=== PATIENT | male | born 1940 | race Caucasian/White ===

== ENCOUNTER 2016-11-12 18:34 | Emergency (ER) | payer OTHER ==
[~2016-11-12] VITALS: Ht 182.9 cm; Wt 113.7 kg
[~2016-11-12 18:34] MED LIST: ASPI81TA28 PO; KFL/250 PO
[2016-11-12 18:41] VITALS: TEMP 36.8; Ht 182.9 cm; Wt 113.7 kg
[2016-11-12] MEDS ORDERED: SODIUM CHLORIDE 0.9% 1000ML 500 ML IV STA (18:55)
[2016-11-12] MEDS ORDERED: ACETAMINOPHEN 500 MG TAB PO STA (18:55)
--- NOTE | 2016-11-12 19:01 | EMERGENCY ROOM VISIT NOTE ---
History Report prepared by Kristofer: Jose Eduardo Ledesma Under the Supervision of: Dr. Clarence Benítez M.D. First contact with patient: 18:50 Chief Complaint: BACK PAIN Stated Complaint: PAIN IN SHOULDER History of Present Illness The patient is a 76 year old male who presents to the Emergency Room with complaints of mid shoulder back pain that began 2 weeks ago. The patient rates his pain a 7/10 in severity. The patient has torn ligaments in this area, but he believes that his pain is different than that pain. His pain is worse on the right side. His pain does not radiate down his arm. He was put on Prednisone, but the pain persisted. He notes that he was throwing lumber around recently, which may have contributed to the pain. His pain worsens with movement. He denies any shortness of breath, nausea, diaphoresis, cough, or cold symptoms. Source of History: patient Onset: 2 weeks ago Position: back Symptom Intensity: 7/10 Quality: ache Timing: other (persistent) Modifying Factors (Worsening): movement Associated Symptoms: No SOB, No cough, No diaphoresis, No nausea, No sorethroat Review of Systems See HPI for pertinent positives & negatives. A total of 10 systems reviewed and were otherwise negative. Past Medical & Surgical Medical Problems: (1) Atrial fibrillation Family History Diabetes mellitus Social History Smoking Status: Never Smoker Alcohol Use: none Drug Use: none Marital Status: Housing Status: lives with family Occupation Status: employed Current/Historical Medications Scheduled Aspirin (Aspirin Ec), 81 MG PO DAILY Cephalexin Monohydrate (Keflex), 250 MG PO DAILY Allergies Coded Allergies: Iodine (Verified Allergy, Mild, ITCHING AFTER TOPICAL IODINE IN ED, 11/12/16 ) Penicillins (Verified Allergy, Unknown, _, 11/12/16) Physical Exam Vital Signs Date Time Temp Pulse Resp B/P Pulse Ox O2 Delivery O2 Flow Rate FiO2 11/12/16 21:42 67 24 143/81 94 11/12/16 20:52 66 24 156/76 94 Room Air 11/12/16 19:41 63 11/12/16 19:33 95 Room Air 11/12/16 18:41 36.8 70 20 147/81 93 Room Air Physical Exam GENERAL: Patient is in no acute distress. HEENT: No acute trauma, normocephalic atraumatic, mucous membranes moist, no nasal congestion, no scleral icterus. NECK: No stridor, no adenopathy, no meningismus, trachea is midline. LUNGS: Clear to auscultation bilaterally, no wheeze, no rhonchi, breath sounds equal. HEART: Without murmurs gallops or rubs, regular rate and rhythm. ABDOMEN: Soft, nontender, bowel sounds positive, no hernias, no peritonitis. BACK: No midline tenderness. No lumbar contusion. No thoracic contusion. Somewhat tender in the right scapular region. EXTREMITIES: No cyanosis or edema, full range of motion of all the joints without pain or difficulty, no signs for acute trauma. NEUROLOGIC: Oriented x 3, no acute motor or sensory deficits, no focal weakness. SKIN: No rash, no jaundice, no diaphoresis. Medical Decision & Procedures ER Provider Diagnostic Interpretation: Radiology results are stated below per my review and radiologist interpretation: THORACIC SPINE 3 VIEWS CLINICAL HISTORY: Midthoracic back pain. No reported history of trauma. FINDINGS: AP, lateral, and swimmer's views of the thoracic spine are obtained. No prior studies are available for comparison at the time of dictation. The skeletal structures are osteopenic. There is no radiographic evidence of fracture or malalignment. Vertebral body height and alignment are maintained throughout the thoracic spine. Anterior osteophytes are noted throughout. The transverse processes and pedicles are grossly intact on the frontal view. The Intervertebral disc spaces appear preserved. The imaged posterior ribs appear intact. The lung parenchyma is clear as visualized. IMPRESSION: Osteopenia and degenerative change as above. No acute bony abnormality is identified in the thoracic spine. Electronically signed by: Clarence Gillespie M.D. 11/12/2016 8:40 PM Dictated Date/Time: 11/12/2016 8:39 PM SINGLE VIEW CHEST CLINICAL HISTORY: Midthoracic back pain. FINDINGS: An AP upright chest radiograph is compared to study dated 06/01/2015. The examination is degraded by patient rotation. The heart is enlarged and there is atherosclerotic calcification of the thoracic aorta. The pulmonary vasculature is noncongested. Chronic interstitial thickening is similar to previous. No airspace consolidation, large pleural effusion, or pneumothorax is seen. Linear atelectasis at the left lung base. The skeletal structures are osteopenic. Degenerative change is noted throughout the thoracic spine. IMPRESSION: Cardiomegaly with no acute cardiopulmonary abnormality. Electronically signed by: Clarence Gillespie M.D. 11/12/2016 8:43 PM Dictated Date/Time: 11/12/2016 8:41 PM Laboratory Results 11/12/16 19:30 Red Blood Count 4.53, Mean Corpuscular Volume 90.3, Mean Corpuscular Hemoglobin 31.3, Mean Corpuscular Hemoglobin Concent 34.7, Mean Platelet Volume 9.8, Neutrophils (%) (Auto) 68.7, Lymphocytes (%) (Auto) 21.4, Monocytes (%) (Auto) 7.7, Eosinophils (%) (Auto) 1.6, Basophils (%) (Auto) 0.4, Neutrophils # (Auto) 6.25, Lymphocytes # (Auto) 1.95, Monocytes # (Auto) 0.70, Eosinophils # (Auto) 0.15, Basophils # (Auto) 0.04 11/12/16 19:30 Test 11/12/16 19:30 11/12/16 20:10 White Blood Count 9.11 K/uL (4.8-10.8) Red Blood Count 4.53 M/uL (4.7-6.1) Hemoglobin 14.2 g/dL (14.0-18.0) Hematocrit 40.9 % (42-52) Mean Corpuscular Volume 90.3 fL (80-100) Mean Corpuscular Hemoglobin 31.3 pg (25-34) Mean Corpuscular Hemoglobin Concent 34.7 g/dl (32-36) Platelet Count 199 K/uL (130-400) Mean Platelet Volume 9.8 fL (7.4-10.4) Neutrophils (%) (Auto) 68.7 % Lymphocytes (%) (Auto) 21.4 % Monocytes (%) (Auto) 7.7 % Eosinophils (%) (Auto) 1.6 % Basophils (%) (Auto) 0.4 % Neutrophils # (Auto) 6.25 K/uL (1.4-6.5) Lymphocytes # (Auto) 1.95 K/uL (1.2-3.4) Monocytes # (Auto) 0.70 K/uL (0.11-0.59) Eosinophils # (Auto) 0.15 K/uL (0-0.5) Basophils # (Auto) 0.04 K/uL (0-0.2) RDW Standard Deviation 41.2 fL (36.4-46.3) RDW Coefficient of Variation 12.6 % (11.5-14.5) Immature Granulocyte % (Auto) 0.2 % Immature Granulocyte # (Auto) 0.02 K/uL (0.00-0.02) Anion Gap 9.0 mmol/L (3-11) Est Creatinine Clear Calc Drug Dose 107.9 ml/min Estimated GFR () 102.9 Estimated GFR (Non- 88.8 BUN/Creatinine Ratio 27.7 (10-20) Calcium Level 8.5 mg/dl (8.5-10.1) Total Bilirubin 0.4 mg/dl (0.2-1) Aspartate Amino Transf (AST/SGOT) 22 U/L (15-37) Alanine Aminotransferase (ALT/SGPT) 28 U/L (12-78) Alkaline Phosphatase 71 U/L (45-117) Troponin I < 0.015 ng/ml (0-0.045) Total Protein 7.0 gm/dl (6.4-8.2) Albumin 3.3 gm/dl (3.4-5.0) Globulin 3.7 gm/dl (2.5-4.0) Albumin/Globulin Ratio 0.9 (0.9-2) Lipase 284 U/L (73-393) Chemistry Specimen Hemolysis D-Dimer 280 ug/L FEU (0-500) Laboratory results reviewed by me. Medications Administered Medications (Trade) Dose Ordered Sig/Torrie Route Start Time Stop Time Status Last Admin Dose Admin Sodium Chloride (Nss 1000ml) 500 ml @ 999 mls/hr Q31M STAT IV 11/12/16 18:55 11/12/16 19:25 DC 11/12/16 18:55 999 MLS/HR Acetaminophen (Tylenol Tab) 1,000 mg NOW STAT PO 11/12/16 18:55 11/12/16 18:58 DC 11/12/16 19:31 1,000 MG ECG Indication: back/shoulder pain Rate (beats per minute): 66 Rhythm: normal sinus Findings: no acute ischemic change, no ectopy ED Course 1849: The patient was evaluated in room B9. A complete history and physical exam was performed. 1854: Tylenol Tab 1000 mg PO, Sodium Chloride 500 ml @ 999 mls/hr IV 2132: Reevaluated the patient. Discussed results and discharge instructions: He verbalized understanding and agreement. The patient is ready for discharge. Medical Decision Differential diagnosis includes but is not limited to: musculoskeletal pain, pulmonary embolism, pneumonia, cardiac ischemia, malignancy, fracture, nerve impingement, and muscle spasm. There is no leukocytosis or concerning anemia. No significant electrolyte abnormality, kidney failure, hepatitis. EKG shows a sinus rhythm, no acute ischemia. Cardiac enzyme testing 1 is not consistent with acute cardiac injury. Chest x-ray does not show pneumonia or mediastinal widening. There is no CHF. Thoracic spine series does not show any compression fracture, there was some arthritis seen. D-dimer testing is normal. With a normal d-dimer and my low suspicion for PE, I will stop the workup for this diagnosis. No evidence for pancreatitis. The patient presents with some right scapular discomfort. The pain does seem to worsen with movement. His workup here is benign. His pain does seem reproducible by palpation. I suspect the pain is musculoskeletal. The patient was given some oral Tylenol during his stay. He is being discharged with over- the-counter pain medications, massage, heat and rest. He can follow with his doctor as an outpatient. Impression Primary Impression: Right-sided thoracic back pain Scribe Attestation The scribe's documentation has been prepared under my direction and personally reviewed by me in its entirety. I confirm that the note above accurately reflects all work, treatment, procedures, and medical decision making performed by me. Departure Information Dispostion Home / Self-Care Referrals Rg Carreon M.D. (PCP) Forms HOME CARE DOCUMENTATION FORM, IMPORTANT VISIT INFORMATION Patient Instructions My [facility] Additional Instructions motrin or tylenol for pain massage and stretching can help rest avoid activity that aggrevates the area all your testing today was ok as we discussed
[2016-11-12 19:33] VITALS: O2SAT 95
[2016-11-12 19:45] LABS: BASO % 0.4 %; BASO ABS # 0.04 K/uL (0-0.2); COMPLETE YES; EOS % 1.6 %; HEMATOCRIT 40.9 % (42-52); IG% 0.2 %; LYMPH % 21.4 %; LYMPH ABS # 1.95 K/uL (1.2-3.4); MEAN CELL VOLUME 90.3 fL (80-100); MEAN CORPUSCULAR HEMOGLOBIN 31.3 pg (25-34); MEAN CORPUSCULAR HGB CONC 34.7 g/dl (32-36); MEAN PLATELET VOLUME 9.8 fL (7.4-10.4); MONO % 7.7 %; NEUT % 68.7 %; PLATELET COUNT 199 K/uL (130-400); RED BLOOD COUNT 4.53 M/uL (4.7-6.1); WHITE BLOOD COUNT 9.11 K/uL (4.8-10.8)
[2016-11-12 20:08] LABS: ALB/GLOB RATIO 0.9 (0.9-2); ALKALINE PHOSPHATASE 71 U/L (45-117); ALT/SGPT 28 U/L (12-78); AST/SGOT 22 U/L (15-37); BLOOD UREA NITROGEN 21 mg/dl (7-18); BUN/CREATININE RATIO 27.7 (10-20); CALCIUM 8.5 mg/dl (8.5-10.1); CARBON DIOXIDE 27 mmol/L (21-32); CHLORIDE 104 mmol/L (98-107); CREATININE 0.77 mg/dl (0.60-1.40); GLUCOSE 177 mg/dl (70-99); POTASSIUM 4.3 mmol/L (3.5-5.1); SODIUM 140 mmol/L (136-145)
--- NOTE | 2016-11-12 20:41 | DIAGNOSTIC IMAGING REPORT ---
THORACIC SPINE 3 VIEWS CLINICAL HISTORY: Midthoracic back pain. No reported history of trauma. FINDINGS: AP, lateral, and swimmer's views of the thoracic spine are obtained. No prior studies are available for comparison at the time of dictation. The skeletal structures are osteopenic. There is no radiographic evidence of fracture or malalignment. Vertebral body height and alignment are maintained throughout the thoracic spine. Anterior osteophytes are noted throughout. The transverse processes and pedicles are grossly intact on the frontal view. The Intervertebral disc spaces appear preserved. The imaged posterior ribs appear intact. The lung parenchyma is clear as visualized. IMPRESSION: Osteopenia and degenerative change as above. No acute bony abnormality is identified in the thoracic spine. Electronically signed by: Clarence Gillespie M.D. 11/12/2016 8:40 PM Dictated Date/Time: 11/12/2016 8:39 PM
--- NOTE | 2016-11-12 20:44 | DIAGNOSTIC IMAGING REPORT ---
SINGLE VIEW CHEST CLINICAL HISTORY: Midthoracic back pain. FINDINGS: An AP upright chest radiograph is compared to study dated 06/01/2015. The examination is degraded by patient rotation. The heart is enlarged and there is atherosclerotic calcification of the thoracic aorta. The pulmonary vasculature is noncongested. Chronic interstitial thickening is similar to previous. No airspace consolidation, large pleural effusion, or pneumothorax is seen. Linear atelectasis at the left lung base. The skeletal structures are osteopenic. Degenerative change is noted throughout the thoracic spine. IMPRESSION: Cardiomegaly with no acute cardiopulmonary abnormality. Electronically signed by: Clarence Gillespie M.D. 11/12/2016 8:43 PM Dictated Date/Time: 11/12/2016 8:41 PM
[2016-11-12 21:42] VITALS: BP 143/81; PULSE 67; O2SAT 94
== END 2016-11-12 21:45 | disposition home or self-care (01) ==
LOC: C.EDB 18:35
DX: M54.6 Pain in thoracic spine (principal); I48.91 Unspecified atrial fibrillation; Z79.82 Long term (current) use of aspirin

== ENCOUNTER 2016-12-30 18:07 | Emergency (ER) | payer OTHER ==
[~2016-12-30] VITALS: Ht 182.9 cm; Wt 138.0 kg
[2016-12-30] MEDS ORDERED: FENTANYL CITRATE INJ 50 MCG/1 ML 2 ML VIAL IV ONE (18:16)
[2016-12-30] MEDS ORDERED: MIDAZOLAM HCL 5 MG/ML 1 ML VIAL IV ONE (18:16)
[2016-12-30 18:17] VITALS: O2SAT 98
[2016-12-30 18:18] VITALS: Ht 182.9 cm; Wt 138.0 kg
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
[2016-12-30] MEDS ORDERED: DiphenhydrAMINE HCL 50 MG/ML VIAL IV STA (18:42)
[2016-12-30] MEDS ORDERED: METHYLPREDNISOLONE 125 MG VIAL IV STA (18:42)
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
[2016-12-30] MEDS ORDERED: OPTIRAY 320 IV PRN (18:45)
[2016-12-30] MEDS ORDERED: METHYLPREDNISOLONE 125 MG VIAL ONE (18:46)
[2016-12-30] MEDS ORDERED: DiphenhydrAMINE HCL 50 MG/ML VIAL ONE (18:46)
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
[2016-12-30] MEDS ORDERED: RAPID SEQUENCE INDUCTION BAG ONE (18:55)
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
[2016-12-30 19:16] VITALS: BP 184/109; PULSE 135; O2SAT 100
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
[2016-12-30 19:43] LABS: ISTAT CREATININE 0.7 mg/dl (0.6-1.3); ISTAT IONIZED CALCIUM 1.1 mmol/l (1.12-1.32)
== END 2016-12-30 19:10 | disposition short-term general hospital (02) ==
LOC: EDBD 18:07 → C.ED 18:15
DX: S06.6X9A Traumatic subarachnoid hemorrhage with loss of consciousness of unspecified duration, initial encounter (principal); S06.5X9A Traumatic subdural hemorrhage with loss of consciousness of unspecified duration, initial encounter; S12.101A Unspecified nondisplaced fracture of second cervical vertebra, initial encounter for closed fracture; S22.42XA Multiple fractures of ribs, left side, initial encounter for closed fracture; S27.321A Contusion of lung, unilateral, initial encounter; S37.012A Minor contusion of left kidney, initial encounter; R31.9 Hematuria, unspecified; S27.1XXA Traumatic hemothorax, initial encounter; V80.928A Occupant of animal-drawn vehicle injured in other transport accident, initial encounter; I48.91 Unspecified atrial fibrillation; I10 Essential (primary) hypertension; Z79.82 Long term (current) use of aspirin; Z83.3 Family history of diabetes mellitus

== ENCOUNTER 2017-02-17 21:49 | Emergency (ER) | payer SELFPAY ==
[~2017-02-17] VITALS: Ht 182.9 cm; Wt 90.9 kg
[2017-02-17 22:06] VITALS: TEMP 36.5; Ht 182.9 cm; Wt 90.9 kg
[2017-02-17] MEDS ORDERED: IBUP-1050 PO (22:38)
[2017-02-17] MEDS ORDERED: SITA1TAB27 PO (22:38)
[2017-02-17] MEDS ORDERED: DFL100 PO (22:38)
[2017-02-17] MEDS ORDERED: CIPR-255 PO (22:38)
[2017-02-17] MEDS ORDERED: OXYC1CAP5 PO (22:38)
[2017-02-17] MEDS ORDERED: INSDGIPEN SQ (22:38)
[2017-02-17] MEDS ORDERED: LVNIS40 SQ (22:38)
[2017-02-17] MEDS ORDERED: MISCCAP80 PO (22:38)
[2017-02-17] MEDS ORDERED: LEVE500T PO (22:38)
[2017-02-17] MEDS ORDERED: ACET-1311 PO (22:38)
[2017-02-17 23:14] LABS: BASO % 0.3 %; BASO ABS # 0.03 K/uL (0-0.2); COMPLETE YES; EOS % 1.1 %; HEMATOCRIT 31.4 % (42-52); IG% 0.2 %; LYMPH % 20.4 %; LYMPH ABS # 1.87 K/uL (1.2-3.4); MEAN CELL VOLUME 84.4 fL (80-100); MEAN CORPUSCULAR HEMOGLOBIN 27.4 pg (25-34); MEAN CORPUSCULAR HGB CONC 32.5 g/dl (32-36); MEAN PLATELET VOLUME 8.2 fL (7.4-10.4); MONO % 9.9 %; NEUT % 68.1 %; PLATELET COUNT 345 K/uL (130-400); RED BLOOD COUNT 3.72 M/uL (4.7-6.1); WHITE BLOOD COUNT 9.15 K/uL (4.8-10.8)
[2017-02-17 23:22] LABS: URINE APPEARANCE CLEAR (CLEAR); URINE BILIRUBIN NEG (NEG); URINE COLOR YELLOW; URINE EPITHELIAL CELL AUTO >30 /lpf (0-5); URINE NITRITE NEG (NEG); URINE PH 6.5 (4.5-7.5); URINE SPECIFIC GRAVITY 1.011 (1.000-1.030); UROBILINOGEN NEG (NEG); ZZURINE CULT IF INDIC CATH YES
[2017-02-17 23:24] LABS: MANUAL MICROSCOPIC REQUIRED? NO; REVIEW REQ? YES
[2017-02-17 23:33] LABS: BUN/CREATININE RATIO 14.7 (10-20); CALCIUM 8.5 mg/dl (8.5-10.1); CREATININE 0.62 mg/dl (0.60-1.40); POTASSIUM 3.6 mmol/L (3.5-5.1)
[2017-02-17] MEDS ORDERED: OPTIRAY 320 IV PRN (23:45)
[2017-02-18] MEDS ORDERED: SODIUM CHLORIDE 0.9% 500ML 500 ML IV STA (01:14)
[2017-02-18 01:19] VITALS: BP 130/64; PULSE 55; O2SAT 94
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
--- NOTE | 2017-02-18 06:45 | DIAGNOSTIC IMAGING REPORT ---
LEFT KNEE 3 VIEWS CLINICAL HISTORY: Left knee pain. COMPARISON: None FINDINGS: Alignment of the left knee is anatomic. There is no acute fracture. There is a small left knee joint effusion. There is mild narrowing of the medial and patellofemoral compartments. Osteophytosis present. IMPRESSION: 1. No acute fracture. 2. Small left knee joint effusion. 3. Mild to moderate osteoarthritis within the medial and patellofemoral compartments of the left knee. Electronically signed by: Ko Carter M.D. 02/18/2017 6:43 AM Dictated Date/Time: 02/18/2017 6:42 AM
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
== END 2017-02-18 01:40 | disposition home or self-care (01) ==
LOC: C.EDB 21:52
DX: R10.30 Lower abdominal pain, unspecified (principal); N39.0 Urinary tract infection, site not specified; R31.9 Hematuria, unspecified; B49 Unspecified mycosis; M25.562 Pain in left knee; I48.91 Unspecified atrial fibrillation; Z87.820 Personal history of traumatic brain injury; Z98.890 Other specified postprocedural states; Z83.3 Family history of diabetes mellitus; Z79.01 Long term (current) use of anticoagulants; Z79.82 Long term (current) use of aspirin

== ENCOUNTER 2019-04-06 01:47 | Inpatient (IN) ==
--- OUTSIDE RECORDS SUMMARY | 2019-04-06 01:51 | External Medical Summary | Continuity of Care Document ---
:1940 Author Name Manolo M.DСветлана Address Unavailable Unavailable , Care Team Providers Name Role Phone Unavailable Unavailable Unavailable PECHT, R Unavailable Unavailable Unavailable Unavailable Unavailable Problems Incomplete emptying of bladder (788.21) (R33.9) Urinary casts (791.7) (R82.998) Benign prostatic hypertrophy with urinary obstruction (600.0 1) (N40.1) Urinary tract infection (599.0) (N39.0) Retention of urine (788.20) (R33.9) Elevated prostate specific antigen (PSA) (790.93) (R97.20) Encounter for screening for malignant neoplasm of prostate ( V76.44) (Z12.5) Allergies and Adverse Reactions Penicillins (Allergy) Medications Keflex 250 MG Oral Capsule , M.D. Refills: 0 Aspirin 81 MG TABS , M.D. Refills: 0 Procedures History of Back Surgery Status: Complete d History of Transurethral Resection Of Prostate Status: Completed Immunizations Immunizations not documented Social History - Smoking Status Former smoker Plan of Treatment Planned Observations Planned Goals not documented Results No Known Results Results not documented
[2019-04-06] MEDS ORDERED: SODIUM CHLORIDE 0.9% 500 ML IV SCH (02:15)
[2019-04-06] MEDS ORDERED: cefTRIAXone SODIUM 2,000 MG/70 ML BAG IV STA (02:16)
[2019-04-06 02:23] LABS: Basophils # (auto) 0.02 K/uL (0-0.2); Basophils % (auto) 0.1 %; Eosinophils # (auto) 0.03 K/uL (0-0.5); Eosinophils % (auto) 0.2 %; Hemoglobin 13.4 g/dL (14.0-18.0); Immature Granulocytes # (auto) 0.03 K/uL (0.00-0.02); Immature Granulocytes % (auto) 0.2 %; Lymphocytes # (auto) 0.32 K/uL (1.2-3.4); Lymphocytes % (auto) 2.3 %; Mean Corpuscular Hgb Conc 34.4 g/dL (32-36); Mean Corpuscular Volume 89.9 fL (80-100); Mean Platelet Volume 9.4 fL (7.4-10.4); Monocytes # (auto) 0.41 K/uL (0.11-0.59); Monocytes % (auto) 2.9 %; Neutrophils # (auto) 13.39 K/uL (1.4-6.5); Neutrophils % (auto) 94.3 %; Platelet Count 164 K/uL (130-400); RDW Coefficient of Variation 12.6 % (11.5-14.5); RDW Standard Deviation 41.5 fL (36.4-46.3); Red Blood Count 4.34 M/uL (4.7-6.1)
--- NOTE | 2019-04-06 02:38 | Emergency Department Note ---
Entered by Nain Bridges acting as a scribe for History of Present Illness General Chief complaint: Fever Stated complaint: FEVER/ABDOMIANL PAIN Source: family () Limitations: altered mental status History of Present Illness Onset (ago): day(s) (yesterday at noon) Location: head Pain Consistency: + constant Quality: + other (confusion) Associated symptoms: + other (Negative for cough.) The patient is a 79 year old male who presents to the emergency department with complaints of constant confusion beginning yesterday at noon. Per , the patient became confused yesterday at noon and then had a flare up around midnight. She states that the patient does not have a cough. She notes that the patient has a history of urinary and bladder infections. HPI limited secondary to AMS and minimal communication from . Home Medications Home Medications Medication Instructions Recorded Confirmed Type aspirin 81 mg PO DAILY 04/06/19 04/06/19 History cephalexin 250 mg PO DAILY 04/06/19 04/06/19 History citalopram 20 mg PO DAILY 04/06/19 04/06/19 History metformin 500 mg PO BIDM 04/06/19 04/06/19 History Allergies Allergy/AdvReac Type Severity Reaction Status Date / Time iodine Allergy Mild ITCHING Verified 04/06/19 03:30 AFTER TOPICAL IODINE IN ED Penicillins Allergy Unknown _ Verified 04/06/19 03:30 Past Med/Surg History Medical History Neck pain, musculoskeletal (Acute) Atrial fibrillation (Chronic) Abdominal pain (Acute) Back pain (Acute) C2 cervical fracture (Acute) Calcific tendinitis (Acute) Fungal infection (Acute) Headache (Acute) Hematuria (Acute) Hemothorax (Acute) Multiple rib fractures (Acute) Pulmonary contusion (Acute) Renal hematoma, left (Acute) SAH (subarachnoid hemorrhage) (Acute) SDH (subdural hematoma) (Acute) Shoulder pain (Acute) UTI (urinary tract infection) (Acute) Bladder infection Family History Other No significant family history Social History Preferred Language: Ethiopian Communication Ability: Effective Beliefs That Will Affect Care: None marital status: Current Living Situation: Spouse Feels Safe at Home: Yes Smoking Status: Never smoker Second Hand Exposure: No Hx Alcohol Use: No Hx Substance Use: No Review of Systems ROS limited secondary to AMS. Physical Exam Vital Signs Vital Signs - 24 hr 04/06/19 01:51 04/06/19 03:19 04/06/19 03:45 Temperature 39.5 C H Temperature Source Oral Sepsis Recent Fever Within 48 Hours Yes Sepsis New/Unexplained Change in Mental Status Yes Sepsis Action Taken by Nursing Physician Notified Pulse Rate 72 Pulse Rate [Right] 71 69 Respiratory Rate 27 H 22 28 H Respiratory Effort / Characteristics Non-Labored Spontaneous Respiratory Depth Shallow Respiratory Pattern Regular Blood Pressure 125/77 Blood Pressure [Right Arm] 138/68 Blood Pressure Mean 93 Blood Pressure Mean [Right Arm] 91 Blood Pressure Position [Right Arm] Pulse Oximetry 88 L 93 93 Oxygen Delivery Method Room Air Nasal Cannula Oxygen Flow Rate 2 04/06/19 04:24 04/06/19 05:13 Temperature 37.5 C Temperature Source Oral Sepsis Recent Fever Within 48 Hours Sepsis New/Unexplained Change in Mental Status Sepsis Action Taken by Nursing Pulse Rate Pulse Rate [Right] 67 61 Respiratory Rate 26 H 26 H Respiratory Effort / Characteristics Non-Labored Spontaneous Respiratory Depth Shallow Respiratory Pattern Regular Blood Pressure Blood Pressure [Right Arm] 126/59 L 108/59 L Blood Pressure Mean Blood Pressure Mean [Right Arm] 81 75 Blood Pressure Position [Right Arm] Semi-fowlers Semi-fowlers Pulse Oximetry 95 92 Oxygen Delivery Method Nasal Cannula Nasal Cannula Oxygen Flow Rate 2 2 Vital signs reviewed. Noted to be febrile. General: Elderly and chronically ill appearing male, in no significant distress. HEENT: No scleral icterus, PERRLA, neck supple. Atraumatic. Mucous membranes are dry. Cardiovascular: Regular rate and rhythm, no extra sounds. Pulmonary: Clear to auscultation bilaterally but unable to cooperate with exam. Abdomen: Soft, nontender, nondistended, positive bowel sounds. Obese abdomen. Musculoskeletal: Atraumatic, no peripheral edema. Neurologic: Awake, alert, unable to answer questions regarding place, age/ date, and current events. Skin: Warm, dry, no rash Course 0206: The patient was evaluated in room B7. A complete history and physical exam was performed. 0439: Upon reevaluation, the patient is stable. I discussed the findings and the treatment plan with the patient. He expresses agreement and understanding. I spoke with Dr. Moon of the [facility] Hospitalist Service. The patient will be evaluated for further management. Consultations Consultation #1: I reviewed the patient's case with Dr. Moon - Hospitalist, [facility]. He will evaluate the patient for further management. Time: 04:39 Administered Medications Acetaminophen (Tylenol) 650 mg PO Q4H PRN PRN Reason: Fever Stop: 05/06/19 20:23 Last Admin: 04/06/19 20:30 Dose: 650 mg Documented by: [id number] Insulin Aspart (Novolog Flexpen) 0 units SC ACHS SHARRON Stop: 05/06/19 07:29 Last Admin: 04/06/19 21:39 Dose: 1 units Documented by: [id number] Cosigned by: [id number] Admin: 04/06/19 18:09 Dose: 4 units Documented by: [id number] Cosigned by: [id number] Admin: 04/06/19 12:53 Dose: 3 units Documented by: [id number] Cosigned by: [id number] Admin: 04/06/19 10:01 Dose: 1 units Documented by: [id number] Cosigned by: [id number] Discontinued Medications Sodium Chloride (Nss) 500 mls @ 200 mls/hr IV .[id number] SHARRON Stop: 04/06/19 04:44 Last Infusion: 04/06/19 05:14 Dose: 0 mls/hr Documented by: [id number] Admin: 04/06/19 02:41 Dose: 200 mls/hr Documented by: [id number] Ceftriaxone Sodium (Rocephin) 2,000 mg in 70 mls @ 140 mls/hr IV NOW STA Stop: 04/06/19 02:45 Last Infusion: 04/06/19 03:18 Dose: 0 mls/hr Documented by: [id number] Admin: 04/06/19 02:41 Dose: 140 mls/hr Documented by: [id number] Acetaminophen (Ofirmev) 1,000 mg in 100 mls @ 400 mls/hr IV NOW STA Stop: 04/06/19 03:47 Last Infusion: 04/06/19 03:59 Dose: 0 mls/hr Documented by: [id number] Admin: 04/06/19 03:44 Dose: 400 mls/hr Documented by: [id number] Medical Decision Making Differential Diagnosis Differential diagnosis: Etiologies such as viral syndrome, otitis, pharyngitis, pneumonia, influenza, meningitis, urinary tract infection, septic arthritis, soft tissue infectious process, intra-abdominal process, sepsis, bacteremia, as well as others were entertained. Medical Records Attestation: I reviewed the patient's medical records. Home Medications Current Medication List: was personally reviewed by me Laboratory Data Attestation: I reviewed the patient's lab results. Result diagrams: 04/06/19 02:05 04/06/19 02:05 Lab Results 04/06/19 04/06/19 04/06/19 Range/Units 02:05 02:05 02:05 WBC 14.20 H (4.8-10.8) K/uL RBC 4.34 L (4.7-6.1) M/uL Hgb 13.4 L (14.0-18.0) g/dL Hct 39.0 L (42-52) % MCV 89.9 (80-100) fL MCH 30.9 (25-34) pg MCHC 34.4 (32-36) g/dL RDW Std Deviation 41.5 (36.4-46.3) fL RDW Coeff of [place] 12.6 (11.5-14.5) % Plt Count 164 (130-400) K/uL MPV 9.4 (7.4-10.4) fL Immature Gran % (Auto) 0.2 % Neut % (Auto) 94.3 % Lymph % (Auto) 2.3 % [place] % (Auto) 2.9 % Eos % (Auto) 0.2 % Baso % (Auto) 0.1 % Immature Gran # (Auto) 0.03 H (0.00-0.02) K/uL Neut # (Auto) 13.39 H (1.4-6.5) K/uL Lymph # (Auto) 0.32 L (1.2-3.4) K/uL [place] # (Auto) 0.41 (0.11-0.59) K/uL Eos # (Auto) 0.03 (0-0.5) K/uL Baso # (Auto) 0.02 (0-0.2) K/uL Sodium 134 L (136-145) mmol/L Potassium 4.0 (3.5-5.1) mmol/L Chloride 99 (98-107) mmol/L Carbon Dioxide 29 (21-32) mmol/L Anion Gap 6.0 (3-11) BUN 17 (7-18) mg/dl Creatinine 0.92 (0.6-1.4) mg/dl Est Cr Clr Drug Dosing 82.2 ml/min Est GFR ( Amer) 92.0 Est GFR (Non-Af Amer) 79.4 BUN/Creatinine Ratio 18.6 (10-20) Glucose 170 H (70-99) mg/dl POC Lactic Acid Willie (0.90-1.70) mmol/L Lactate 2.0 (0.4-2.0) mmol/L Calcium 8.8 (8.5-10.1) mg/dl Total Bilirubin 0.7 (0.2-1) mg/dl AST 21 (15-37) U/L ALT 36 (12-78) U/L Alkaline Phosphatase 76 (45-117) U/L Troponin I < 0.015 (0-0.045) ng/ml Total Protein 7.5 (6.4-8.2) gm/dl Albumin 3.5 (3.4-5.0) gm/dl Globulin 4.0 (2.5-4.0) gm/dl Albumin/Globulin Ratio 0.9 (0.9-2) Urine Color Urine Appearance (Clear) Urine pH (4.5-7.5) Ur Specific [place] (1.000-1.030) Urine Protein (Negative) Urine Glucose (UA) (Negative) Urine Ketones (Negative) Urine Blood (Negative) Urine Nitrite (Negative) Urine Bilirubin (Negative) Urine Urobilinogen (Negative) Ur Leukocyte Esterase (Negative) Urine WBC (Auto) (0-5) /hpf Urine RBC (Auto) (0-4) /hpf U Hyaline Cast (Auto) (0-5) /lpf U Epithel Cells (Auto) (0-5) /lpf Urine Bacteria (Auto) (Negative) 04/06/19 04/06/19 Range/Units 02:11 03:48 WBC (4.8-10.8) K/uL RBC (4.7-6.1) M/uL Hgb (14.0-18.0) g/dL Hct (42-52) % MCV (80-100) fL MCH (25-34) pg MCHC (32-36) g/dL RDW Std Deviation (36.4-46.3) fL RDW Coeff of [place] (11.5-14.5) % Plt Count (130-400) K/uL MPV (7.4-10.4) fL Immature Gran % (Auto) % Neut % (Auto) % Lymph % (Auto) % [place] % (Auto) % Eos % (Auto) % Baso % (Auto) % Immature Gran # (Auto) (0.00-0.02) K/uL Neut # (Auto) (1.4-6.5) K/uL Lymph # (Auto) (1.2-3.4) K/uL [place] # (Auto) (0.11-0.59) K/uL Eos # (Auto) (0-0.5) K/uL Baso # (Auto) (0-0.2) K/uL Sodium (136-145) mmol/L Potassium (3.5-5.1) mmol/L Chloride (98-107) mmol/L Carbon Dioxide (21-32) mmol/L Anion Gap (3-11) BUN (7-18) mg/dl Creatinine (0.6-1.4) mg/dl Est Cr Clr Drug Dosing ml/min Est GFR ( Amer) Est GFR (Non-Af Amer) BUN/Creatinine Ratio (10-20) Glucose (70-99) mg/dl POC Lactic Acid Willie 1.98 H (0.90-1.70) mmol/L Lactate (0.4-2.0) mmol/L Calcium (8.5-10.1) mg/dl Total Bilirubin (0.2-1) mg/dl AST (15-37) U/L ALT (12-78) U/L Alkaline Phosphatase (45-117) U/L Troponin I (0-0.045) ng/ml Total Protein (6.4-8.2) gm/dl Albumin (3.4-5.0) gm/dl Globulin (2.5-4.0) gm/dl Albumin/Globulin Ratio (0.9-2) Urine Color Dark Yellow Urine Appearance Turbid A (Clear) Urine pH 5.0 (4.5-7.5) Ur Specific [place] 1.018 (1.000-1.030) Urine Protein 1+ H (Negative) Urine Glucose (UA) Negative (Negative) Urine Ketones Negative (Negative) Urine Blood 2+ H (Negative) Urine Nitrite Positive A (Negative) Urine Bilirubin Negative (Negative) Urine Urobilinogen Negative (Negative) Ur Leukocyte Esterase 3+ H (Negative) Urine WBC (Auto) >30 H (0-5) /hpf Urine RBC (Auto) 0-4 (0-4) /hpf U Hyaline Cast (Auto) 1-5 (0-5) /lpf U Epithel Cells (Auto) 0-5 (0-5) /lpf Urine Bacteria (Auto) 2+ H (Negative) Imaging Data Attestation: I personally reviewed and interpreted this imaging study as follows: My Impression: CHEST X-RAY: Some pulmonary vascular congestion, likely positional. No focal lung consolidation. Radiologist's Impression: Radiology results as stated below per my review and the radiologist's interpretation: CT HEAD: Comparison: December 2016 No acute intracranial findings. Involutional changes. Suspected chronic ischemic change/encephalomalacia. No ICH on the current exam. Cavum septum pellucidum et vergae again noted. Mild sinus opacity in the imaged paranasal sinuses with ethmoid predominance. Imaged mastoids well aerated. Radiologist: Mason Dickson M.D. ECG Data Attestation: I personally reviewed and interpreted this ECG as follows: Indication: altered mental status Rate (beats per minute): 75 Rhythm: sinus rhythm Additional Comments: PVC vs. artifact, nonspecific T wave changes, QTC 388, inferior Q waves. Blood Pressure Blood Pressure Findings: Elevated blood pressure Blood Pressure Disposition: elevated BP felt to be situational MDM Narrative This patient was evaluated and appeared to be in no significant distress. IV access was obtained and laboratory work was drawn. Patient was confused and noted to be febrile. IV fluids were initiated and the patient was given 1000 mg of IV Tylenol. Blood cultures and lactate were obtained. Lactic acid is just below 2.0. Patient was given 2 g of IV ceftriaxone as he does have a penicillin allergy listed. His states the reaction happened "prior to us being together." She was not aware of the complication. Laboratory work indicates an elevated WBC. CT scan of the head was performed and is negative for acute intracranial process but is significant for some mild paranasal sinus disease. UA is positive for infection. Patient and were informed of the findings. Initially was hesitant to have the patient admitted however findings were discussed. I feel strongly the patient will require IV antibiotics and close monitoring. Case was discussed with Dr. Barkley of the hospitalist service and the patient will be evaluated for further management. Impression & Plan Sepsis, UTI (urinary tract infection) Discharge Plan Visit Data *Final* Discharge Date/Time: 04/06/19 06:05 Chief Complaint: Fever Stated Complaint: FEVER/ABDOMIANL PAIN Other Complaint: Abdominal Pain ED Provider: Lizet Viramontes Discharge Problem: Sepsis, UTI (urinary tract infection) Patient Disposition: Admitted As Inpatient Discharge Instructions Interventions: ED Discharge Assessment Last Done: 04/06/19 06:05 Discharge Problem: Sepsis Qualifiers: Sepsis type: sepsis due to unspecified organism Qualified Code(s): A41.9 - Sepsis, unspecified organism UTI (urinary tract infection) Qualifiers: Urinary tract infection type: site unspecified Hematuria presence: without hematuria Qualified Code(s): N39.0 - Urinary tract infection, site not specified The scribe's documentation has been prepared under my direction and personally reviewed by me in its entirety. I confirm that the note above accurately reflects all work, treatment, procedures, and medical decision making performed by me.
[2019-04-06 02:51] LABS: Alanine Aminotransferase 36 U/L (12-78); Albumin Level 3.5 gm/dl (3.4-5.0); Aspartate Aminotransferase 21 U/L (15-37); BUN Creatinine Ratio 18.6 (10-20); Blood Urea Nitrogen 17 mg/dl (7-18); Calcium 8.8 mg/dl (8.5-10.1); Carbon Dioxide 29 mmol/L (21-32); Chloride 99 mmol/L (98-107); Creatinine Clr Calc Pharmacy 82.2 ml/min; Est GFR (Non-African American) 79.4; Glucose 170 mg/dl (70-99); Sodium 134 mmol/L (136-145)
[2019-04-06 02:55] LABS: Albumin Globulin Ratio 0.9 (0.9-2); Alkaline Phosphatase 76 U/L (45-117); Bilirubin,Total 0.7 mg/dl (0.2-1); Total Protein 7.5 gm/dl (6.4-8.2); Troponin I < 0.015 ng/ml (0-0.045)
[2019-04-06] MEDS ORDERED: ACETAMINOPHEN 1,000 MG/100 ML VIAL IV STA (03:33)
[2019-04-06 04:03] LABS: Appearance Urine Turbid (Clear); Bacteria Urine Automated 2+ (Negative); Bilirubin Urine Negative (Negative); Blood Urine 2+ (Negative); Color Urine Dark Yellow; Epithelial Cell Urine Auto 0-5 /lpf (0-5); Glucose Urine UA Negative (Negative); Ketones Urine Negative (Negative); Leukocyte Esterase Urine 3+ (Negative); Nitrite Urine Positive (Negative); Protein Urine 1+ (Negative); RBC Urine Automated 0-4 /hpf (0-4); Specific Gravity Urine 1.018 (1.000-1.030); Urobilinogen Urine Negative (Negative); WBC Urine Automated >30 /hpf (0-5)
--- NOTE | 2019-04-06 05:52 | History & Physical Report ---
Date of Service April 06, 2019 Assessment & Plan (1) Sepsis due to urinary tract infection: Sepsis due to urinary tract infection/prostatitis/confusion and disorientation- Given ceftriaxone 2 g IV daily in the ED, continue. Follow urine culture and sensitivity. Follow blood cultures. Continue IV fluid rehydration. Admit to monitored bed. Present on Admission?: Yes (2) Confusion and disorientation: Has history of intracranial hemorrhage, but CT of head negative for acute findings. Present on Admission?: Yes (3) Diabetes mellitus: Hold metformin. Placed on Accu-Cheks before meals and at bedtime with NovoLog coverage for scale Present on Admission?: Yes (4) Depression: Hold Celexa, until improvement in encephalopathy Present on Admission?: Yes History of Present Illness Chief Complaint: The patient is brought to the emergency department after his called EMS due to him acting more confused at home. Primary Care Provider: GIBRAN ZACARIAS The patient is a 79-year-old Shashi male with past medical history including diabetes mellitus and depression, who presents to the emergency department via EMS after his reports that he was shouting out and acting confused while at home. She reports that he has been becoming more confused over the past 24 to 48 hours. He has not had any obvious symptoms that she is aware of. He has not had any recent travels or sick exposures. He has not had these type of symptoms in the past. Work-up in the emergency department suggested sepsis due to UTI/prostatitis, and after repeat conversation, in which the patient was obviously confused and unable to make an accurate decision, his did agree that he should be admitted to the hospital for further treatment. Allergies Allergy/AdvReac Type Severity Reaction Status Date / Time iodine Allergy Mild ITCHING Verified 04/06/19 03:30 AFTER TOPICAL IODINE IN ED Penicillins Allergy Unknown _ Verified 04/06/19 03:30 Home Medications Home Medications Medication Instructions Recorded Confirmed Type aspirin 81 mg PO DAILY 04/06/19 04/06/19 History cephalexin 250 mg PO DAILY 04/06/19 04/06/19 History citalopram 20 mg PO DAILY 04/06/19 04/06/19 History metformin 500 mg PO BIDM 04/06/19 04/06/19 History Past Med/Surg History Medical History Neck pain, musculoskeletal (Acute) Atrial fibrillation (Chronic) Abdominal pain (Acute) Back pain (Acute) C2 cervical fracture (Acute) Calcific tendinitis (Acute) Fungal infection (Acute) Headache (Acute) Hematuria (Acute) Hemothorax (Acute) Multiple rib fractures (Acute) Pulmonary contusion (Acute) Renal hematoma, left (Acute) SAH (subarachnoid hemorrhage) (Acute) SDH (subdural hematoma) (Acute) Shoulder pain (Acute) UTI (urinary tract infection) (Acute) Bladder infection Family History Other No significant family history Social History marital status: Current Living Situation: Family Feels Safe at Home: Yes Smoking Status: Never smoker Review of Systems Review of Systems: Unobtainable due to cognitive status Physical Exam Physical Exam: The patient is awake, disoriented and unable to answer questions, well developed and well nourished, normocephalic and atraumatic, lying in bed and in no acute distress. HEENT--PERRL, EOMI, mucous membranes and oropharynx dry. Neck--supple. No JVD. No bruits. Thyroid normal, trachea midline, no adenopathy. Heart--normal S1 and S2. No murmurs, rubs or gallops. Lungs--clear bilaterally, no respiratory distress, no accessory muscle use. Abdomen--normal bowel sounds and soft. Nontender. Nondistended. Obese Extremities--no cyanosis or clubbing. No edema. There are good distal pulses b/l. Dermatologic--normal skin turgor, normal color, no abnormal lymph nodes, no rash. Neurologic--cranial nerves II through XII grossly intact. Rheumatologic--normal range of motion. Psychiatric-disoriented, encephalopathic appearing. Results & Data Vital Signs (Past 12 Hours) Vital Signs Temp Pulse Pulse Resp BP BP Pulse Ox 04/06/19 05:13 61 26 H 108/59 L 92 04/06/19 04:24 99.5 F 67 26 H 126/59 L 95 04/06/19 03:45 69 28 H 93 04/06/19 03:19 71 22 138/68 93 04/06/19 01:51 103.1 F H 72 27 H 125/77 88 L Laboratory Results Laboratory Results WBC 14.20 K/uL (4.8-10.8) H 04/06/19 02:05 RBC 4.34 M/uL (4.7-6.1) L 04/06/19 02:05 Hgb 13.4 g/dL (14.0-18.0) L 04/06/19 02:05 Hct 39.0 % (42-52) L 04/06/19 02:05 MCV 89.9 fL (80-100) 04/06/19 02:05 MCH 30.9 pg (25-34) 04/06/19 02:05 MCHC 34.4 g/dL (32-36) 04/06/19 02:05 RDW Std Deviation 41.5 fL (36.4-46.3) 04/06/19 02:05 RDW Coeff of Clare 12.6 % (11.5-14.5) 04/06/19 02:05 Plt Count 164 K/uL (130-400) 04/06/19 02:05 MPV 9.4 fL (7.4-10.4) 04/06/19 02:05 Immature Gran % (Auto) 0.2 % 04/06/19 02:05 Neut % (Auto) 94.3 % 04/06/19 02:05 Lymph % (Auto) 2.3 % 04/06/19 02:05 [place] % (Auto) 2.9 % 04/06/19 02:05 Eos % (Auto) 0.2 % 04/06/19 02:05 Baso % (Auto) 0.1 % 04/06/19 02:05 Immature Gran # (Auto) 0.03 K/uL (0.00-0.02) H 04/06/19 02:05 Neut # (Auto) 13.39 K/uL (1.4-6.5) H 04/06/19 02:05 Lymph # (Auto) 0.32 K/uL (1.2-3.4) L 04/06/19 02:05 [place] # (Auto) 0.41 K/uL (0.11-0.59) 04/06/19 02:05 Eos # (Auto) 0.03 K/uL (0-0.5) 04/06/19 02:05 Baso # (Auto) 0.02 K/uL (0-0.2) 04/06/19 02:05 Sodium 134 mmol/L (136-145) L 04/06/19 02:05 Potassium 4.0 mmol/L (3.5-5.1) 04/06/19 02:05 Chloride 99 mmol/L (98-107) 04/06/19 02:05 Carbon Dioxide 29 mmol/L (21-32) 04/06/19 02:05 Anion Gap 6.0 (3-11) 04/06/19 02:05 BUN 17 mg/dl (7-18) 04/06/19 02:05 Creatinine 0.92 mg/dl (0.6-1.4) 04/06/19 02:05 Est Cr Clr Drug Dosing 82.2 ml/min 04/06/19 02:05 Est GFR ( Amer) 92.0 04/06/19 02:05 Est GFR (Non-Af Amer) 79.4 04/06/19 02:05 BUN/Creatinine Ratio 18.6 (10-20) 04/06/19 02:05 Glucose 170 mg/dl (70-99) H 04/06/19 02:05 POC Lactic Acid Willie 1.98 mmol/L (0.90-1.70) H 04/06/19 02:11 Lactate 2.0 mmol/L (0.4-2.0) 04/06/19 02:05 Calcium 8.8 mg/dl (8.5-10.1) 04/06/19 02:05 Total Bilirubin 0.7 mg/dl (0.2-1) 04/06/19 02:05 AST 21 U/L (15-37) 04/06/19 02:05 ALT 36 U/L (12-78) 04/06/19 02:05 Alkaline Phosphatase 76 U/L (45-117) 04/06/19 02:05 Troponin I < 0.015 ng/ml (0-0.045) 04/06/19 02:05 Total Protein 7.5 gm/dl (6.4-8.2) 04/06/19 02:05 Albumin 3.5 gm/dl (3.4-5.0) 04/06/19 02:05 Globulin 4.0 gm/dl (2.5-4.0) 04/06/19 02:05 Albumin/Globulin Ratio 0.9 (0.9-2) 04/06/19 02:05 Urine Color Dark Yellow 04/06/19 03:48 Urine Appearance Turbid (Clear) A 04/06/19 03:48 Urine pH 5.0 (4.5-7.5) 04/06/19 03:48 Ur Specific [place] 1.018 (1.000-1.030) 04/06/19 03:48 Urine Protein 1+ (Negative) H 04/06/19 03:48 Urine Glucose (UA) Negative (Negative) 04/06/19 03:48 Urine Ketones Negative (Negative) 04/06/19 03:48 Urine Blood 2+ (Negative) H 04/06/19 03:48 Urine Nitrite Positive (Negative) A 04/06/19 03:48 Urine Bilirubin Negative (Negative) 04/06/19 03:48 Urine Urobilinogen Negative (Negative) 04/06/19 03:48 Ur Leukocyte Esterase 3+ (Negative) H 04/06/19 03:48 Urine WBC (Auto) >30 /hpf (0-5) H 04/06/19 03:48 Urine RBC (Auto) 0-4 /hpf (0-4) 04/06/19 03:48 U Hyaline Cast (Auto) 1-5 /lpf (0-5) 04/06/19 03:48 U Epithel Cells (Auto) 0-5 /lpf (0-5) 04/06/19 03:48 Urine Bacteria (Auto) 2+ (Negative) H 04/06/19 03:48 Diagnostic Findings [facility] Patient: DEIRDRE SOUHT (Male) Age: 79 MR #: [id number] Status: ER Date: 04/06/19 03:14 Slices: 66 History: ALTERED MENTAL STATUS, FEVER Priors: Tech: Triston Krishnan @ [phone] Exams: CT HEAD Accession Numbers: [id number] Preliminary Findings Only See Final Report For Complete Findings CT HEAD: Comparison December 2016 No acute intracranial findings. Involutional changes. Suspected chronic ischemic change/encephalomalacia. No ICH on the current exam. Cavum septum pellucidum et vergae again noted. Mild sinus opacity in the imaged paranasal sinuses with ethmoid predominance. Imaged mastoids well aerated. Radiologist: Mason Dickson M.D. Study ready at 03:17 and initial results transmitted at 03:26 *This report constitutes a preliminary interpretation only. Non-acute findings felt to be unrelated to the clinical presentation may not be discussed in this report. The study will be interpreted and a final report will be generated by the local Radiologist the following shift. To reach the hospital radiology department call [phone]. If a discrepancy is found between the preliminary and final interpretations of this study, please notify us via our Client Portal at [email or web address] [employer]. You can also fax this report with a description of the discrepancy, or include the final report, to our daytime fax number [phone]. If faxing, please indicate the severity of discrepancy using one of the following categories: [ ] 1 - Agree/Informational [ ] 2 - Unlikely to Affect Management [ ] 3 - Possible Eventual Change of Management [ ] 4 - Probable Immediate Change of Management For all other patient related information, please fax us at [phone]. [id number] Code Status & VTE Plan Code Status Full code VTE Prophylaxis Plan VTE Prophylaxis will be ordered: Yes PG Care Time/CCT Total # of Minutes Spent Total Time Spent with Patient: Total time spent is greater than 50% in coordination of care (as documented) at patient's floor/unit and/or counseling patient:
[2019-04-06] MEDS ORDERED: CARBOHYDRATES FOR HYPOGLYCEMIA PO PRN (06:35)
[2019-04-06] MEDS ORDERED: ONDANSETRON INJ 2 MG/ML 2 ML VIAL IV PRN (06:35)
[2019-04-06] MEDS ORDERED: GLUCOSE 10 TABS/TUBE PO PRN (06:35)
[2019-04-06] MEDS ORDERED: DEXTROSE 50% 50 ML SYRINGE IV PRN (06:35)
[2019-04-06] MEDS ORDERED: GLUCOSE 40% GEL 15 GM TUBE PO PRN (06:35)
[2019-04-06] MEDS ORDERED: GLUCAGON FOR INJ 1 MG VIAL SQ PRN (06:35)
--- NOTE | 2019-04-06 07:09 | CT Scan Report ---
CT SCAN OF THE BRAIN WITHOUT IV CONTRAST CLINICAL HISTORY: Change in mental status. COMPARISON STUDY: CT of the brain dated 12/30/2016. TECHNIQUE: Unenhanced axial CT scan of the brain is performed from the vertex to the skull base. A do se lowering technique was utilized adhering to the principles of ALARA. CT DOSE: 614.27 mGy.cm FINDINGS: Brain parenchyma: There are age-related involutional changes noting mild to moderate patchy subcorti soila and periventricular microangiopathic change. A small focus of left frontal encephalomalacia is co nsistent with a remote insult. There is no hemorrhage, mass effect, or evidence of acute territorial ischemia by CT criteria. Gonzales-white matter differentiation is preserved. No extra-axial fluid collect ion is seen. Ventricles, sulci, cisterns: Prominent secondary to involutional change. Cavum septum pellucidum is i ncidentally noted. Intracranial vasculature: There is atherosclerotic calcification of the cavernous carotid and vertebr al arteries. Calvarium: Unremarkable. Sinuses and mastoids: There is trace mucosal thickening within the maxillary and sphenoid sinuses. Mi ld mucosal thickening is noted in the frontal and ethmoid sinuses. The mastoid air cells are well pne umatized. Orbits: The bony orbits are grossly intact. IMPRESSION: There is no hemorrhage, mass effect, or evidence of acute territorial ischemia by CT roxanne sterling. Electronically signed by: Clarence Gillespie M.D. 04/06/2019 7:08 AM
--- NOTE | 2019-04-06 07:26 | XRay Report ---
SINGLE VIEW CHEST CLINICAL HISTORY: Fever. FINDINGS: 2 AP, portable, upright chest radiographs are compared to study dated 12/30/2016. The examin ation is degraded by portable technique and patient rotation. The heart is enlarged and there is at herosclerotic calcification of the thoracic aorta. There is prominence of the central pulmonary vascu lature. There is bibasilar scarring/atelectasis. No airspace consolidation or large pleural effusion is identified. No pneumothorax is seen. The skeletal structures are osteopenic. There is chronic post traumatic deformity of the right clavicle as well as healed left-sided rib fractures. Degenerative ch cheryl is seen throughout the thoracic spine. IMPRESSION: 1. Cardiomegaly with prominence of the central pulmonary vasculature. Correlate clinically for eviden ce of mild congestive failure. 2. No airspace consolidation or large pleural effusion is seen. Electronically signed by: Clarence Gillespie M.D. 04/06/2019 7:25 AM
--- NOTE | 2019-04-06 08:06 | Hospitalist Progress Note ---
Date of Service April 06, 2019 Assessment & Plan (1) Sepsis due to urinary tract infection: Sepsis due to urinary tract infection/prostatitis/confusion and disorientation- Given ceftriaxone 2 g IV daily in the ED, continue. Follow urine culture and sensitivity. Follow blood cultures. (2) Confusion and disorientation: Has history of intracranial hemorrhage, but CT of head negative for acute findings. (3) Diabetes mellitus: Hold metformin. Placed on Accu-Cheks before meals and at bedtime with NovoLog coverage for scale (4) Depression: Hold Celexa, until improvement in encephalopathy Subjective this pt feels well has no real complaints this am and otherwise feels returned to baseline Review of Systems Review of Systems: ROS: well nourished well developed. No double vision blurry vision No problems with speech or swallowing No palpitations, chest pain or pressure No Wheezing or breathing issues No abdominal pain nausea vomiting diarrhea changes in appetite or weight No burning urine urine frequency or changes in color No focal joint pain or muscle pain No skin rashes or oral lesions No unusual bruising or bleeding No focused back pain or numbness or loss of strength No changes in memory or confusion Physical Exam Physical Exam: The patient appeared well nourished and normally developed. Vital signs as documented. Head exam is unremarkable. normocephalic, atraumatic Neck is without jugular venous distension, thyromegaly, or lymphademopathy Lungs are clear to auscultation and percussion. Cardiac exam reveals Rhythm is regular. First and second heart sounds normal. Abdominal exam reveals normal bowel sounds, no masses, no organomegaly Extremities are nonedematous and both pedal pulses are present Neurologic exam is A&Ox3, no focal deficits, strength is equal bilateral Psychologically seems neither anxious or depressed Skin is warm Dry without bruises or lesions Results & Data Vital Signs (Past 12 Hours) Vital Signs Temp Pulse Pulse Pulse Resp BP BP 04/06/19 07:54 36.8 C 54 L 16 111/65 04/06/19 06:37 36.7 C 59 L 16 131/68 04/06/19 06:05 61 20 117/64 04/06/19 05:13 61 26 H 108/59 L 04/06/19 04:24 37.5 C 67 26 H 126/59 L 04/06/19 03:45 69 28 H 04/06/19 03:19 71 22 138/68 04/06/19 01:51 39.5 C H 72 27 H 125/77 Pulse Ox 04/06/19 07:54 95 04/06/19 06:37 95 04/06/19 06:05 96 04/06/19 05:13 92 04/06/19 04:24 95 04/06/19 03:45 93 04/06/19 03:19 93 04/06/19 01:51 88 L PG Care Time/CCT Total # of Minutes Spent Total Time Spent with Patient: Total time spent is greater than 50% in coordination of care (as documented) at patient's floor/unit and/or counseling patient:
[2019-04-06] MEDS: INSULIN ASPART 100 UNITS/ML 3 ML PEN SC SCH ×4 (10:01→21:39)
[2019-04-06] MEDS ORDERED: ACETAMINOPHEN 325 MG TAB PO PRN (20:24)
[2019-04-07] MEDS ORDERED: cefTRIAXone SODIUM 2,000 MG in DEXTROSE 5% 50 ML IV SCH (02:00)
[2019-04-07] MEDS: INSULIN ASPART 100 UNITS/ML 3 ML PEN SC SCH (08:43)
[2019-04-07] MEDS ORDERED: levoFLOXacin 500 MG TAB PO ONE (09:00)
--- NOTE | 2019-04-07 16:14 | Discharge Summary ---
Date of Service April 07, 2019 Admission HPI Per Admitting Provider The patient is a 79-year-old Shashi male with past medical history including diabetes mellitus and depression, who presents to the emergency department via EMS after his reports that he was shouting out and acting confused while at home. She reports that he has been becoming more confused over the past 24 to 48 hours. He has not had any obvious symptoms that she is aware of. He has not had any recent travels or sick exposures. He has not had these type of symptoms in the past. Work-up in the emergency department suggested sepsis due to UTI/prostatitis, and after repeat conversation, in which the patient was obviously confused and unable to make an accurate decision, his did agree that he should be admitted to the hospital for further treatment. Principal Diagnosis Sepsis from urinary source preliminary gram-negative Discharge Exam Constitutional well developed and average body habitus Eyes no conjunctival abnormality and no scleral abnormality Neck normal visual inspection and trachea midline Respiratory normal respiratory effort; no respiratory distress Auscultation: lungs clear to auscultation bilaterally Cardiovascular RRR, no murmur, no edema Gastrointestinal (Abdomen) normal bowel sounds, soft, nontender, no hepatosplenomegaly Musculoskeletal no cyanosis or clubbing, extremities motor strength 5/5 Discharge Data Allergies Allergy/AdvReac Type Severity Reaction Status Date / Time iodine Allergy Mild ITCHING Verified 04/06/19 03:30 AFTER TOPICAL IODINE IN ED Penicillins Allergy Unknown _ Verified 04/06/19 03:30 Consultations 04/06/19 04:17 ED Decision to Admit Stat 04/06/19 06:35 Consult Case Management - Discharge Planning Routine Ordered Studies 04/06/19 02:13 CT head/brain wo con Urgent Hospital Course (1) Sepsis due to urinary tract infection: Sepsis due to urinary tract infection/prostatitis/confusion and disorientation- Mental status has improved pulmonary cultures are gram-negative patient does not want to stay in the hospital he was discharged on ciprofloxacin 500 twice daily pending final culture results he understands that he may need to have his antibiotics changed to have a 2-week course (2) Confusion and disorientation: Has history of intracranial hemorrhage, but CT of head negative for acute findings. (3) Diabetes mellitus: Resume metformin. At time of discharge (4) Depression: Resume Celexa, as encephalopathy is improved Total Time Total Time Spent Total Time Spent (In Minutes): greater than 30 minutes were required to prepare discharge Discharge Plan Discharge Items Patient Disposition: Home - Self-Care Reason For Visit: SEPSIS DUE TO UTI Discharge Diagnosis: urine infection with bacteria also in blood Discharge Goals: Decrease discomfort, Diagnostic testing and Improve disease control Activity: Resume your previous activity Non-emergency contact: Primary Care Provider Call non-emergency contact if: you have any medication questions Follow-up/Referrals: GIBRAN ZACARIAS [Other] Diet: Regular Addtl Provider Instructions: please drink plenty of liquids follow up with your family doctor this week Prescriptions: New ciprofloxacin HCl 500 mg tablet 500 mg PO BID Qty: 24 RF: 0 Continued metformin 500 mg tablet 500 mg PO BIDM RF: 0 aspirin 81 mg Tablet,Delayed Release (Dr/Ec) 81 mg PO DAILY RF: 0 citalopram 20 mg tablet 20 mg PO DAILY RF: 0 Discontinued cephalexin 250 mg capsule 250 mg PO DAILY RF: 0 Stand-Alone Forms: [facility] Discharge Orders: Discharge Order (Routine); Ordered 04/07/19 Ordered By: Venkat Dos Santos Admission Data Admit Date/Time: 04/06/19 05:32 Attending Provider: Venkat Dos Santos Admit Provider: Sanju Moon Other Providers: Sanju Moon Service: Telemetry Medical Other Interventions: Discharge Summary Assessment (RN) Last Done: 04/07/19 08:15 DC Date/Time DO NOT enter until pt leaves facility: 04/07/19 13:16
[2019-04-08 06:03] LABS: Estimated Average Glucose 148 mg/dl; Hemoglobin A1C 6.8 % (4.5-5.6)
--- NOTE | 2019-04-09 05:48 | Coding Query ---
CODING QUERY To promote full compliance with coding requirements relating to patient care, provider participation is requested in all cases of legal services professional uncertainty. Please assist us with the question(s) below: Coding Question: Per documentation, patient was confused and disoriented, the following was also documented: "Hold Celexa, until improvement in encephalopathy", please clarify if the patient had encephalopathy. Thank you so much for your help! Have a great day! (xxx ) Metabolic Encephalopathy, POA ( ) Encephalopathy, unspecified, POA ( ) Confusion/Disorientation only ( ) Other, explain Thank you! Marianela Saez Principal Diagnosis: "that condition established after study, to be chiefly responsible for occasioning the admission of the patient to the hospital for care." Co-Existing Principal Diagnosis: "when two or more diagnoses equally meet the criteria for principal diagnosis as determined by the circumstances of admission, diagnostic work up, and/or therapy provided, and the Alphabetic Index, Tabular List, or another coding guideline does not provide sequencing direction, any one of the diagnoses may be sequenced first." "When the physician has documented what appears to be a current diagnosis in the body of the record, but has not included the diagnosis in the final diagnostic statement, the physician should be asked whether the diagnosis should be added." (Source [facility]oding [facility] 2 QTR90. p3-4) TEJA
== END 2019-04-07 13:16 | disposition home or self-care (01) | DRG 871 ==
LOC: ED 01:47 → SUATTDRO 05:32 → 2N 05:32